=== PATIENT | male | born 1980 | race Caucasian/White ===

== ENCOUNTER 2022-08-10 02:57 | Observation (INO) | payer BC, SELFPAY ==
[2022-08-10] VITALS (17 sets, daily range): BP systolic 104–188; BP diastolic 58–106; PULSE 88–115; RESP 12–22; TEMP 36.6–37.7; O2SAT 94–100; BMI 41.1
--- NOTE | ~2022-08-10 | CT_ITS ---
CT of the Abdomen and Pelvis: Indication: Abdominal pain Technique: 2.5 mm axial scans were obtained through the abdomen and pelvis following intravenous adm inistration of 100 cc of Omnipaque 350. Dose reduction technique was used on this scan by utilizing a utomated exposure control and iterative reconstruction technique. The dose-length product (DLP) was 1 505.87 mGy-cm. Findings: Scans through the lung bases are unremarkable. Diffuse fatty infiltration of liver noted. The spleen, pancreas, gallbladder, adrenals and kidneys ar e within normal limits. No evidence of aortic aneurysm. No bowel obstruction or bowel wall thickening. Appendix is dilated to 14 mm, with appendiculis presen t and periappendiceal inflammatory change. No abscess or free air.. There is haziness in the central mesentery, multiple mildly prominent, shotty lymph nodes, consistent with mesenteric panniculitis. Images through the pelvis were performed. Urinary bladder unremarkable. Prostate gland and seminal ve sicles are unremarkable. No ascites. Impression: Acute appendicitis, as detailed above. No abscess or free air. Mesenteric panniculitis. Diffuse fatty infiltration of the liver. Reviewed, dictated and finalized at location . Impression: Acute appendicitis, as detailed above. No abscess or free air. Mesenteric panniculitis. Diffuse fatty infiltration of the liver.
[2022-08-10] MEDS: SODIUM CHLORIDE 0.9% IV 1,000 ML 999 ML IV CONT (03:44)
[2022-08-10] MEDS: ONDANSETRON INJ 4 MG/2 ML VIAL IV PUSH (03:44)
[2022-08-10] MEDS: MORPHINE SULFATE (*CRX) 4 MG/ML INJ IV PUSH ×6 (03:44→17:35)
[2022-08-10 04:06] LABS: Basophils Absolute Auto 0.1 K/mm3 (0.0-0.1); Basophils Percent Auto 0.4 % (0.2-1.2); Eosinophils Absolute Auto 0.2 K/mm3 (0-0.3); Eosinophils Percent Auto 0.9 % (0-4.4); Hematocrit 45.9 % (42.0-52.0); Hemoglobin 15.3 g/dL (14.0-18.0); Immature Granulocyte Absolute 0.13 K/mm3 (0.00-0.031); Immature Granulocyte Percent A 0.7 % (0-0.5); Lymphocytes Absolute Auto 1.93 K/mm3 (0.9-3.2); Lymphocytes Percent Auto 10.7 % (18.3-44.2); Mean Corpuscular HGB Conc 33.3 g/dl (32-36); Mean Corpuscular Hemoglobin 30.8 pg (26-34); Mean Corpuscular Volume 92.5 fl (80-100); Mean Platelet Volume 10.2 fl (7.4-10.4); Monocytes Absolute Auto 1.1 K/mm3 (0.1-0.6); Monocytes Percent Auto 6.2 % (2.6-8.5); Neutrophils Absolute Auto 14.7 K/mm3 (1.3-6.7); Neutrophils Percent Auto 81.1 % (45.5-73.1); Platelet Count Result 301 k/mm3 (150-375); Red Blood Count 4.96 M/mm3 (4.6-6.20); Red Cell Distribution Width 13.2 % (11.5-14.5); White Blood Count 18.1 K/mm3 (4.5-10.0)
[2022-08-10 04:07] LABS: Alanine Aminotransferase 233 U/L (6-50); Albumin Level 4.9 g/dL (3.5-5.1); Alkaline Phosphatase 99 U/L (38-126); Anion Gap 8 mmol/L (8-16); Aspartate Amino Transferase 94 U/L (17-59); Bilirubin,Total 0.6 mg/dL (0.2-1.3); Blood Urea Nitrogen 18 mg/dL (9-20); Calcium 9.3 mg/dL (8.4-10.2); Carbon Dioxide 28 mmol/L (22-30); Chloride 104 mmol/L (98-107); Estimated CRCL calculation 122 ml/min; Estimated Glomerular Filt Rate > 60; Glucose 129 mg/dL (65-110); Lipase 142 U/L (23-300); Potassium 4.4 mmol/L (3.4-5.0); Sodium 140 mmol/L (137-145)
--- NOTE | 2022-08-10 04:09 | ED.GENADULT ---
HPI - General Adult General Chief complaint: Abdominal Pain Stated complaint: abd pain Time Seen by Provider: 08/10/22 03:25 History of Present Illness HPI narrative: Patient 42-year-old gentleman who presents the emergency department with chief complaint of abdominal pain. The patient reports that he started having bouts of diarrhea and is having episodes where he feels as though he needs to have diarrhea but is not having stool come out the patient states that he has diffuse discomfort throughout his abdomen and reports that he had a couple episodes of nausea and vomiting. Patient denies fever reports no prior history of surgery in the abdomen. Patient states he feels as though he is overeating but reports that he does not eat more than normal and did not have an excessively rich meal Related Data Allergies Allergy/AdvReac Type Severity Reaction Status Date / Time No Known Allergies Allergy Verified 08/10/22 03:46 Review of Systems Review of Systems: A 10 system review of systems was completed on the patient and is negative except for what is stated in the HPI. Nursing and ancillary documentation was reviewed. PMFSH Comments Past medical history significant for hypertension Exam Narrative: GENERAL: Well-appearing, well-nourished, and in no acute distress. HEAD: Normocephalic, atraumatic. EYES: PERRLA and EOMI. ENT: Nares clear, no rhinorrhea or epistaxis. Mucous membranes moist. NECK: Supple. CHEST: Clear to auscultation. No respiratory distress. HEART: Regular rate and rhythm. No murmur heard. Normal peripheral pulses. ABDOMEN: Soft, diffusely tender to palpation, nondistended, normal active bowel sounds. EXTREMITIES: Normal range of motion. No edema. SKIN: Warm, dry, no rash. NEURO: No focal deficits. Alert and oriented x3. PSYCH: Normal mood and affect. Course Vital Signs Vital signs: Vital Signs Temperature 36.9 C 08/10/22 03:00 Pulse Rate 104 H 08/10/22 03:00 Respiratory Rate 18 08/10/22 03:00 Blood Pressure 188/106 H 08/10/22 03:00 Pulse Oximetry 97 08/10/22 03:00 Oxygen Delivery Room Air 08/10/22 03:00 Temperature 36.9 C 08/10/22 03:00 Pulse Rate 104 H 08/10/22 03:00 Respiratory Rate 18 08/10/22 03:00 Blood Pressure 188/106 H 08/10/22 03:00 Pulse Oximetry 97 08/10/22 03:00 Oxygen Delivery Room Air 08/10/22 03:00 Medical Decision Making MDM Narrative Medical decision making narrative: Differential diagnosis includes appendicitis, colitis, gastroenteritis, Laboratory studies were obtained which showed a white count of 18,000 patient's laboratory studies showed a slightly elevated AST and ALT urinalysis showed no evidence of UTI CT scan of the abdomen pelvis showed evidence of acute uncomplicated appendicitis with appendicolith Vital Signs Vital Signs: Vital Signs Temperature 36.9 C 08/10/22 03:00 Pulse Rate 104 H 08/10/22 03:00 Respiratory Rate 18 08/10/22 03:00 Blood Pressure 188/106 H 08/10/22 03:00 Pulse Oximetry 97 08/10/22 03:00 Oxygen Delivery Room Air 08/10/22 03:00 Temperature 36.9 C 08/10/22 03:00 Pulse Rate 104 H 08/10/22 03:00 Respiratory Rate 18 08/10/22 03:00 Blood Pressure 188/106 H 08/10/22 03:00 Pulse Oximetry 97 08/10/22 03:00 Oxygen Delivery Room Air 08/10/22 03:00 Lab Data 08/10/22 03:48 08/10/22 03:48 Labs: Lab Results 08/10/22 08/10/22 08/10/22 Range/Units 03:48 03:48 04:10 WBC 18.1 H (4.5-10.0) K/mm3 RBC 4.96 (4.6-6.20) M/mm3 Hgb 15.3 (14.0-18.0) g/dL Hct 45.9 (42.0-52.0) % MCV 92.5 (80-100) fl MCH 30.8 (26-34) pg MCHC 33.3 (32-36) g/dl RDW 13.2 (11.5-14.5) % Plt Count 301 (150-375) k/mm3 MPV 10.2 (7.4-10.4) fl Immature Gran % (Auto) 0.7 H (0-0.5) % Neut % (Auto) 81.1 H (45.5-73.1) % Lymph % (Auto) 10.7 L (18.3-44.2) % [place] % (Auto) 6.2 (2.6-8.5) % Eos % (Auto) 0.9
[2022-08-10 04:18] LABS: Appearance Urine Clear (Clear); Bilirubin Urine Negative (Negative); Blood Urine Negative (Negative); Color Urine Yellow (Yellow); Glucose Urine UA Negative (Negative); Ketones Urine Negative (Negative); Leukocyte Esterase Ur Negative LEU/UL (Negative); Nitrate Urine Negative (Negative); Protein Urine Negative (Negative); Specific Grav Ur 1.022 (1.001-1.035); Urobilinogen Urine 0.2 mg/dL (<2.0); pH Urine 5.5 (5.0-9.0)
[2022-08-10 04:36] LABS: Add Urine Microscopic? NO
[2022-08-10] MEDS: PIPERACILLN/TAZ 3.375GM/NS50ML 3.375 GM/50 ML BAG IVPB ×2 (05:51→10:45)
--- NOTE | 2022-08-10 06:18 | ADMGEN ---
This patient, Taye Freitas, was admitted to 2 Medical Room 240-01. Patient/family oriented to hospital policies and general routines including ID bracelet, bed and alarms, visiting hours, pain management, procedures, bathroom and other care routines, personal items, smoking policy, room service/diet, and visiting hours. Information on how to activate the Rapid Response Team has been discussed. Patient/Family are encouraged to report perceived risks to care and to ask questions if they do not understand what they are told or what they should do.
[2022-08-10] MEDS: SODIUM CHLORIDE 0.9% IV 1,000 ML 125 ML IV CONT (06:38)
[2022-08-10] MEDS: LACTATED RINGERS 1,000 ML 30 ML IV CONT ×2 (09:00→10:19)
--- NOTE | 2022-08-10 09:07 | WPDANESEPPF ---
Anes - Initial Pre Proc Eval Procedure: Operation Date: 08/10/22 10:00 Proposed Procedures p Laparoscopic Appendectomy, Possible Open - Althea Elder MD Date/Time: 08/10/22 09:07 Surgeon: Althea Elder MD Pre Op Diagnosis: Acute appendicitis Patient Data Age: 42 Gender: M Height: 1.7 m Weight: 119.1 kg Last Vital Signs Temp 36.9 C 08/10/22 06:15 Pulse 101 H 08/10/22 06:15 Resp 20 08/10/22 06:15 BP 148/98 H 08/10/22 06:15 Pulse Ox 99 08/10/22 06:15 O2 Del Method Room Air 08/10/22 03:00 Allergies Allergy/AdvReac Type Severity Reaction Status Date / Time No Known Allergies Allergy Verified 08/10/22 03:46 Home Medications Medication Instructions Recorded Confirmed Type escitalopram oxalate 10 mg tablet 10 mg PO DAILY 08/10/22 08/10/22 History (Lexapro) lisinopril 10 1 tablet PO DAILY 08/10/22 08/10/22 History mg-hydrochlorothiazide 12.5 mg tablet metoprolol succinate 25 mg 25 mg PO DAILY 08/10/22 08/10/22 History tablet,extended release 24 hr omeprazole 20 mg capsule,delayed 20 mg PO DAILY 08/10/22 08/10/22 History release Laboratory Tests 08/10/22 08/10/22 08/10/22 03:48 03:48 04:10 WBC 18.1 K/mm3 H K/mm3 (4.5-10.0) RBC 4.96 M/mm3 M/mm3 (4.6-6.20) Hgb 15.3 g/dL g/dL (14.0-18.0) Hct 45.9 % % (42.0-52.0) MCV 92.5 fl fl (80-100) MCH 30.8 pg pg (26-34) MCHC 33.3 g/dl g/dl (32-36) RDW 13.2 % % (11.5-14.5) Plt Count 301 k/mm3 k/mm3 (150-375) MPV 10.2 fl fl (7.4-10.4) Immature Gran % (Auto) 0.7 % H % (0-0.5) Neut % (Auto) 81.1 % H % (45.5-73.1) Lymph % (Auto) 10.7 % L % (18.3-44.2) [place] % (Auto) 6.2 % % (2.6-8.5) Eos % (Auto) 0.9 % % (0-4.4) Baso % (Auto) 0.4 % % (0.2-1.2) Lymph # (Auto) 1.93 K/mm3 K/mm3 (0.9-3.2) [place] # (Auto) 1.1 K/mm3 H K/mm3 (0.1-0.6) Eos # (Auto) 0.2 K/mm3 K/mm3 (0-0.3) Baso # (Auto) 0.1 K/mm3 K/mm3 (0.0-0.1) Abs Immat Gran (auto) 0.13 K/mm3 H K/mm3 (0.00-0.031) Absolute Neuts (auto) 14.7 K/mm3 H K/mm3 (1.3-6.7) Absolute Nucleated RBC 0.0 K/mm3 K/mm3 (0.0-0.012) Nucleated RBC % 0.0 % % (0.0-0.2) Sodium 140 mmol/L mmol/L (137-145) Potassium 4.4 mmol/L mmol/L (3.4-5.0) Chloride 104 mmol/L mmol/L (98-107) Carbon Dioxide 28 mmol/L mmol/L (22-30) Anion Gap 8 mmol/L mmol/L (8-16) BUN 18 mg/dL mg/dL (9-20) Creatinine 0.80 mg/dL mg/dL (0.7-1.3) Estim Creat Clear Calc 122 ml/min ml/min Estimated GFR > 60 (59 - ) Glucose 129 mg/dL H mg/dL (65-110) Calcium 9.3 mg/dL mg/dL (8.4-10.2) Total Bilirubin 0.6 mg/dL mg/dL (0.2-1.3) AST 94 U/L H U/L (17-59) ALT 233 U/L H U/L (6-50) Alkaline Phosphatase 99 U/L U/L (38-126) Total Protein 8.0 g/dL g/dL (6.3-8.2) Albumin 4.9 g/dL g/dL (3.5-5.1) Lipase 142 U/L U/L (23-300) Urine Color Yellow (Yellow) Urine Appearance Clear (Clear) Urine pH 5.5 (5.0-9.0) Ur Specific [place] 1.022 (1.001-1.035) Urine Protein Negative mg/dL mg/dL (Negative) Urine Glucose (UA) Negative mg/dL mg/dL (Negative) Urine Ketones Negative mg/dL mg/dL (Negative) Ur Blood (Man) Negative (Negative) Urine Nitrate Negative (Negative) Urine Bilirubin Negative (Negative) Urine Urobilinogen 0.2 mg/dL mg/dL (<2.0) Leukocyte Esterase Rfl Negative SHERINE/UL SHERINE/UL (Negative) Patient hx anesthesia problems: none Family hx anesthesia problems: none Results Review: All pre-operative results and documents
--- NOTE | 2022-08-10 09:16 | PM.IMHP ---
H&P: HPI History of Present Illness Date/Time: 08/10/22 09:16 Chief Complaint: Acute appendicitis Narrative: The patient is a 42-year-old male presenting to the emergency department complaining of a one-day history of severe abdominal pain. The patient reports the pain actually started around 11:00 p.m. last night and was diffuse in nature initially. The patient reports the pain is now more localized to the right lower quadrant and has become more constant, sharp. The patient does report diarrhea throughout the day yesterday. The patient reports he is otherwise felt normal, denies any fever or chills, reports normal appetite. The patient denies any previous surgical history. The patient denies any previous similar episodes. Review of Systems Constitutional: Constitutional: Reports as per HPI, Denies anorexia, Denies chills, Denies fatigue, Denies fever(s), Denies increased appetite, Denies lethargy, Denies poor appetite, Denies weakness, Denies weight gain and Denies weight loss Eyes: Eyes: Reports no additional eye complaints ENT: Reports system reviewed and no additional complaints, except as documented Cardiovascular: Cardiovascular: Reports no additional cardiovascular complaints Respiratory: Respiratory: Reports no additional respiratory complaints Gastrointestinal: Gastrointestinal: Reports as per HPI, Reports abdominal pain, Reports bloating, Reports change in bowel habits, Reports change in stool character, Reports GI cramping, Denies early satiety, Reports diarrhea, Reports loose stools, Denies nausea and Denies vomiting Genitourinary: Genitourinary: Reports no additional male genitourinary complaints Musculoskeletal: Musculoskeletal: Reports no additional musculoskeletal complaints Integumentary/Breasts: Skin/Breast: Reports system reviewed and no additional complaints, except as docu Neurologic: Reports system reviewed and no additional complaints, except as documented Psychiatric: Psychiatric: Reports no additional psychiatric complaints Endocrine: Endocrine: Reports no additional endocrine complaints Hematologic/Lymphatic: Hematologic/Lymphatic: Reports no additional hematologic/lymphatic complaints Allergic/Immunologic: Allergic/Immunologic: Reports no additional allergic/immunologic complaints [facility] Social History Social History Smoking packs per day: 0.5 Smoking cigarettes per day: 10.0 Smoking status: Current every day smoker Tobacco type: cigarettes Alcohol intake: current Drinks per week: 6 Substance use: never Lack of Transportation: No Lack of Food: Never True Current Housing: I Have Housing Concerned About Future Housing: No Difficulty Paying Gas/Electric Bills: No Difficulty Paying for Meds: No Currently Unemployed: No Education: Bachelor's Degree Difficulty w/ Childcare or Family Care: No Spiritual care concerns: No Comments Med history - HTN, GERD, Depression PSxH - none FH - no IBD, CRC Meds Home Medications and Allergies Home Medications Medication Instructions Recorded Confirmed Type escitalopram oxalate 10 mg tablet 10 mg PO DAILY 08/10/22 08/10/22 History (Lexapro) lisinopril 10 1 tablet PO DAILY 08/10/22 08/10/22 History mg-hydrochlorothiazide 12.5 mg tablet metoprolol succinate 25 mg 25 mg PO DAILY 08/10/22 08/10/22 History tablet,extended release 24 hr omeprazole 20 mg capsule,delayed 20 mg PO DAILY 08/10/22 08/10/22 History release Allergies Allergy/AdvReac Type Severity Reaction Status Date / Time No Known Allergies Allergy Verified 08/10/22 03:46 Vital Signs Vital Signs - 24 hr 08/10/22 03:00 08/10/22 06:15 Temperature 36.9 C 36.9 C Pulse Rate 104 H 101 H Respiratory Rate 18 20 Blood Pressure 188/106 H 148/98 H Pulse Oximetry 97 99 Oxygen Delivery Room Air Exam Const: General: cooperative, well developed and acute distress mil
[2022-08-10] MEDS: ceFAZolin 2 GM/D5W 50 ML 2 GM/50 ML BAG IVPB (09:20)
--- NOTE | 2022-08-10 09:22 | WPDHPUPDATE1 ---
History and Physical Update Update Date/Time: 08/10/22 09:22 History and Physical has been reviewed, including an updated exam of the patient. There are NO changes in the patient's condition. Risks, benefits, and alternatives have been discussed and questions answered. Patient agrees to proceed with procedure.
[2022-08-10] MEDS: BUPIVACAINE/EPINEPHRINE 0.25% 50 ML VIAL INFILTRATE (09:43)
--- NOTE | 2022-08-10 10:37 | P.OP_ITS ---
Procedure Note - Detailed Date of Procedure 08/10/22 Pre-op Diagnosis Acute appendicitis Post-op Diagnosis Same Procedure Performed laparoscopic appendectomy Surgeon Althea Elder MD Anesthesia General Indications 42 y/o M presenting to ED c acute appendicitis Findings acute appendicitis no evidence of perforation Description of Procedure The patient was taken to the operating room and placed in the supine position. After adequate induction of general anesthesia, the patient was prepped and draped in the normal sterile fashion. A time-out was then done to verify the patient's identity, as well as the procedure being performed. I began by making a 5 mm incision in the infraumbilical region, through this a Veress needle was placed in the peritoneal cavity. CO2 gas was then insufflated and after adeq uate pneumoperitoneum was achieved the Veress needle was removed. Then placed a 5 mm Optiview trocar under direct visualization into the peritoneal cavity. I then insufflated through this trocar site and the endoscope was placed into the trocar. Under direct visualization, placed 2 further 5 mm suprapubic port as well as an additional 12 mm port in the left lower abdomen. At this point identified the cecum, I retracted the cecum both medially and superiorly allowing me to expose the appendix. The appendix was noted to be very dilated and inflamed. The appendix was noted to be very adherent to the right lateral sidewall as well as the ileum. I was able to bluntly dissect the appendix from these adhesions. I then was able to locate the base of the appendix with the cecum. I created a window with the [place] dissector between the appendix itself and the mesoappendix. I then transected the mesoappendix with a white vascular staple load x 2. The Endo-VIRAL was then reloaded with a blue staple load and I transected the base of the appendix. Once the specimen was completely detached, an endo-pouch was placed into the 12 mm port site and the specimen was removed through the endo-pouch. The appendiceal specimen will be sent to pathology for further review. I then copiously irrigated the right lower quadrant. Hemostasis was noted at both staple lines no other pathology was seen in this area. I then moved the camera to the suprapubic port to check our its port of entry. No iatrogenic injury or other pathology was noted in the upper abdomen. I then closed the 12 mm port site with a Amadeo code and 0 Vicryl suture under direct visualization. At this point, the abdomen was desufflated and all ports were removed. All port sites were closed with 4 Monocryl subcuticular suture. Dermabond was placed on all wounds. The patient tolerated the procedure well and was extubated in the operating room postop. He will be sent to the recovery room in stable condition. Estimated Blood Loss 10 Drains No Packing No Pathology Yes Complications No immediate complications Condition Stable Disposition PACU [facility] Billing Surgery - Charge Forward: Surgery Billing
[2022-08-10] MEDS: HYDROmorphone HCL INJ (*CRX) 1 MG/ML SYR 0.5 MG IV PUSH ×4 (10:43→11:37)
[2022-08-10] MEDS: hydroCHLOROthiazide 12.5 MG CAPSULE PO (12:57)
[2022-08-10] MEDS: ESCITALOPRAM OXALATE 10 MG TABLET PO (12:57)
[2022-08-10] MEDS: lisinopriL 10 MG TABLET PO (12:58)
[2022-08-10] MEDS: METOPROLOL SUCCINATE EXT REL 25 MG TABCR PO (12:58)
[2022-08-10] MEDS: PANTOPRAZOLE 40 MG TABLET PO (12:59)
[2022-08-10] MEDS: HYDROcodone/acetaminophen (*CRX) 5-325 MG TABLET 1 TAB PO (20:27)
[2022-08-11] MEDS: HYDROcodone/acetaminophen (*CRX) 5-325 MG TABLET 1 TAB PO ×2 (00:38→07:51)
[2022-08-11 02:30] VITALS: BP 123/50; PULSE 81; RESP 18; TEMP 36.6; O2SAT 96
[2022-08-11 09:09] VITALS: BP 134/78; PULSE 80; RESP 16; TEMP 36.9; O2SAT 98
[2022-08-11] MEDS: ESCITALOPRAM OXALATE 10 MG TABLET PO (09:11)
[2022-08-11] MEDS: hydroCHLOROthiazide 12.5 MG CAPSULE PO (09:11)
[2022-08-11 09:12] VITALS: PULSE 81
[2022-08-11] MEDS: PANTOPRAZOLE 40 MG TABLET PO (09:12)
[2022-08-11] MEDS: lisinopriL 10 MG TABLET PO (09:12)
[2022-08-11] MEDS: METOPROLOL SUCCINATE EXT REL 25 MG TABCR PO (09:12)
--- NOTE | 2022-08-11 10:59 | PM.DS ---
DS: Admitting Diagnosis Discharge Date 08/11/2022 Admitting Diagnosis Acute appendicitis DS: Discharge Diagnosis Discharge Diagnosis (1) Acute appendicitis: Code(s): K35.80 - Unspecified acute appendicitis Status: Acute Assessment and Plan: status post laparoscopic appendectomy, continue routine postoperative care, home with p.o. analgesia and Colace, follow-up 2 weeks (2) Hypertension: Code(s): I10 - Essential (primary) hypertension Status: Acute Assessment and Plan: stable, continue home meds (3) GERD (gastroesophageal reflux disease): Code(s): K21.9 - Gastro-esophageal reflux disease without esophagitis Status: Acute Assessment and Plan: stable, continue home meds (4) Smoker: Code(s): F17.200 - Nicotine dependence, unspecified, uncomplicated Status: Acute Assessment and Plan: provider counseling DS: Summary Hospital Course Reason for hospitalization: acute appendicitis Hospital Course: The patient is a 42-year-old male presenting to the emergency department complaining of severe lower abdominal pain. Workup in the emergency department, including imaging, was significant for acute appendicitis. Given these findings, the patient was admitted to the surgical service and started on IV antibiotics. Upon evaluation, the decision was made for urgent appendectomy. The patient was taken to the operating room and laparoscopic appendectomy was done, please see full operative report for details of that procedure. Postoperatively, the patient did very well was transferred back to the surgical floor. Over the next 24 hour, the patient was able to tolerate a diet, was up and ambulating without issue, and pain was well controlled with p.o. analgesia. The patient will now be discharged home with p.o. analgesia and Colace. He will follow up with me in 2 weeks. Status at Discharge Functional status at discharge: independent ambulation Overall status at discharge: patient is progressing back to baseline Time Spent with Patient Time attestation: Total time spent providing and/or coordinating discharge services: Exam Const: General: cooperative, comfortable and no acute distress Resp: Auscultation: clear to auscultation bilaterally Cardio: Rate: regular rate Rhythm: regular rhythm GI: Inspection: normal to inspection, distended and incision GI Palp: Yes abdominal tenderness, Yes Soft to palpation, Yes Tenderness to palpation present (GI), No Guarding due to palpation present (GI) and No Rigid due to palpation DS: Data Data Completed and Pending Pending studies at discharge: Pending at discharge 08/10/22 09:47 Surgical [PTH] Routine Discharge Plan Discharge Attending physician on discharge: Althea Elder Discharging Clinician: Althea Elder Patient Disposition: Home, Self-Care Activity: other - see discharge instructions Diet: other - see discharge instructions Wound Care Instructions: incision open to air Discharge Instructions: DISCHARGE INSTRUCTION SHEET FOR HERNIA, GALLBLADDER AND APPENDIX SURGERIES DR. ELDER PATIENT TO TAKE HOME 1. May shower in 24 hours, no soaking in bath x 2weeks. 2. Call office for: Wound increasingly painful or bleeding Vomiting Fever of greater than 101 degrees 3. If no bowel movement for three days, take 1 oz. (30 ml) Milk of Magnesia or MiraLax 17g 1 to 2 times daily. 4. No heavy lifting > 10-15 pounds x 6 weeks for hernia repairs and 2 weeks for laparoscopic cholecystectomy or appendectomy. 5. No driving for 3 days or while taking narcotic pain medications. 6. Ice to surgical site for 48 hours (30 min on, then 30 min off). 7. Up walking 10-30 minutes three times per day. 8. Resume previous home medications. 9. Follow-up 10-14 days in office for wound check or as previously scheduled. [id number]) [phone]
== END 2022-08-11 11:30 | disposition home or self-care (01) ==
LOC: ANHED 05:04 → ANH2MED 06:28
PROVIDERS: Admitting Provider Surgery; Emergency Provider Emergency Medicine; PCP Nurse Practitioner; Visit Provider Surgery
PROC: 0DTJ4ZZ Resection of Appendix, Percutaneous Endoscopic Approach (ICD-10-PCS; CPT 44970; principal; 2022-08-10 10:00)
DX: K35.80 Unspecified acute appendicitis (principal); I10 Essential (primary) hypertension; K65.4 Sclerosing mesenteritis; K76.0 Fatty (change of) liver, not elsewhere classified; K21.9 Gastro-esophageal reflux disease without esophagitis; F17.210 Nicotine dependence, cigarettes, uncomplicated; F10.90 Alcohol use, unspecified, uncomplicated; Z79.899 Other long term (current) drug therapy
CPT/HCPCS: 44970; 36415; 74177; 80053; 81003; 83690; 85025; 88304; 96361; 96365; 96375; 96376; 99285; A9270; G0378; J0131; J0330; J0690; J1100; J1170; J2250; J2270; J2405; J2543; J2710; J3010; J7030; J7120; Q9967

== ENCOUNTER 2023-04-05 13:21 | Emergency (ER) | payer BC, SELFPAY ==
[2023-04-05 13:29] VITALS: BP 162/106; PULSE 110; RESP 18; TEMP 36.7; O2SAT 98
--- NOTE | 2023-04-05 13:36 | ED.SKABFB ---
HPI - Skin/Abscess/Foreign Bdy General Chief complaint: Skin/Abscess/Foreign Body Stated complaint: Allergic Reaction Time Seen by Provider: 04/05/23 13:37 Source: patient Mode of arrival: ambulatory Limitations: no limitations History of Present Illness HPI narrative: 41 yo M presents with c/o hives, itching for 1 wk. [place] 1 [place] and given prednisone. Took last dose of prednisone this AM. Itching and rash started last night. Rash worse than it was one wk ago. Only change at home is switching from tide to gain. pt reports rash to trunk , feet and groin. All systems reviewed and negative except as noted above. Related Data Home Medications Medication Instructions Recorded Confirmed escitalopram oxalate 10 mg tablet 10 mg PO DAILY 08/10/22 04/05/23 (Lexapro) lisinopril 10 1 tablet PO DAILY 08/10/22 04/05/23 mg-hydrochlorothiazide 12.5 mg tablet metoprolol succinate 25 mg 25 mg PO DAILY 08/10/22 04/05/23 tablet,extended release 24 hr omeprazole 20 mg capsule,delayed 20 mg PO DAILY 08/10/22 04/05/23 release Allergies Allergy/AdvReac Type Severity Reaction Status Date / Time No Known Allergies Allergy Verified 04/05/23 13:22 Review of Systems Review of Systems: CONSTITUTIONAL: Denies fever, chills, or sweats. EYES: Denies visual changes, redness, or discharge. ENT: Denies rhinorrhea, congestion, sore throat, or otalgia. CARDIOVASCULAR: Denies chest pain, palpitations, or edema. RESPIRATORY: Denies cough or dyspnea. GASTROINTESTINAL: Denies abdominal pain, nausea, vomiting, or diarrhea. GENITOURINARY: Denies dysuria or hematuria. SKIN: Report rash and itching. MUSCULOSKELETAL: Denies back pain, joint pain, or myalgia. NEUROLOGIC: Denies headache, numbness, or weakness. PSYCHIATRIC: Denies anxiety or depression. All other systems reviewed are negative, except as documented in HPI. [facility] Social History Social History Smoking packs per day: 0.5 Smoking cigarettes per day: 10.0 Smoking status: Current every day smoker Tobacco type: cigarettes Alcohol intake: current Drinks per week: 6 Substance use: never Lack of Transportation: No Lack of Food: Never True Current Housing: I Have Housing Concerned About Future Housing: No Difficulty Paying Gas/Electric Bills: No Difficulty Paying for Meds: No Currently Unemployed: No Education: Bachelor's Degree Difficulty w/ Childcare or Family Care: No Gender identity (if verbalized by the patient): Male Spiritual care concerns: No Comments At time of signature, agree with nursing past medical, surgical, social and family history. There is no relevant family history pertinent to the presenting complaint. Exam Narrative: GENERAL: This is a well-nourished, well-developed patient, in no apparent distress. HEAD: normocephalic, atraumatic. EYES: PERRL. Sclera clear/white. Vision is grossly intact. EARS: External ears normal NOSE: External nose normal NECK: Neck supple, non-tender without lymphadenopathy, masses or thyromegaly. CARDIOVASCULAR: Regular rate and rhythm without murmurs, gallops, or rubs. RESPIRATORY: Clear to auscultation. Breath sounds equal bilaterally. No wheezes, rales, or rhonchi. SKIN: warm, Dry, intact , good texture and turgor. erythematous hives to left side of abdomen, bilateral feet. NEURO: awake, alert, and oriented to person, place and time. There were no obvious focal neurologic abnormalities. EXTREMITIES: No joint tenderness, effusion, or edema noted. Course Course Level of Care: Express Care Visit Vital Signs Vital signs: Vital Signs Temperature 36.7 C 04/05/23 13:29 Pulse Rate 110 H 04/05/23 13:29 Respiratory Rate 18 04/05/23 13:29 Blood Pressure 162/106 H 04/05/23 13:29 Pulse Oximetry 98 04/05/23 13:29 Oxygen Delivery Room Air 04/05/23 13:29 Temperature 36.7 C 03/20
== END 2023-04-05 13:54 | disposition home or self-care (01) ==
PROVIDERS: Emergency Provider Nurse Practitioner Family; PCP Nurse Practitioner
DX: T78.40XA Allergy, unspecified, initial encounter (principal); L50.9 Urticaria, unspecified; F17.210 Nicotine dependence, cigarettes, uncomplicated; K21.9 Gastro-esophageal reflux disease without esophagitis; F41.9 Anxiety disorder, unspecified; F32.A Depression, unspecified
CPT/HCPCS: 99213; G0463

== ENCOUNTER 2023-06-18 00:25 | Emergency (ER) | payer BC, SELFPAY ==
--- NOTE | ~2023-06-18 | XR_ITS ---
Portable chest x-ray Comparison: None Clinical History: Fever Findings: Lungs are clear, without focal consolidation or pleural effusion. Cardiomediastinal silho uette is unremarkable. Bones and soft tissues are unremarkable. Impression: Normal chest. Reviewed, dictated and finalized at location . S A [employer] Impression: Normal chest.
[2023-06-18 00:26] VITALS: BP 148/89; PULSE 133; RESP 18; TEMP 39.6; O2SAT 96
[2023-06-18 00:46] VITALS: BP 155/81; PULSE 124; RESP 17; O2SAT 97
--- NOTE | 2023-06-18 00:59 | ECG_ITS ---
Measurements Intervals [place] Rate: 113 P: 46 NC: 171 QRS: -30 QRSD: 102 T: 7 QT: 322 QTc: 443 Interpretive Statements SINUS TACHYCARDIA DELAYED PRECORDIAL R/S TRANSITION BORDERLINE T WAVE ABNORMALITY- INFERIOR LEADS ABNORMAL ECG NO PREVIOUS ECG AVAILABLE FOR COMPARISON Electronically Signed On 06-18-2023 6:28:37 [employer] by Hang Arroyo D.O.
[2023-06-18] MEDS: ACETAMINOPHEN 500 MG TABLET 1000 MG PO (01:53)
[2023-06-18] MEDS: diphenhydrAMINE HCl INJ 50 MG/ML VIAL IV PUSH (01:54)
[2023-06-18] MEDS: FAMOTIDINE 20 MG/2 ML VIAL 40 MG IV PUSH (01:55)
[2023-06-18] MEDS: SODIUM CHLORIDE 0.9% IV 2,000 ML 999 ML IV CONT (01:59)
[2023-06-18 02:19] LABS: Basophils Percent Auto 0.2 % (0.2-1.2); Hematocrit 41.8 % (42.0-52.0); Hemoglobin 13.9 g/dL (14.0-18.0); Immature Granulocyte Absolute 0.08 K/mm3 (0.00-0.031); Immature Granulocyte Percent A 0.8 % (0-0.5); Lymphocytes Absolute Auto 0.56 K/mm3 (0.9-3.2); Lymphocytes Percent Auto 5.5 % (18.3-44.2); Mean Corpuscular HGB Conc 33.3 g/dl (32-36); Mean Corpuscular Hemoglobin 30.1 pg (26-34); Mean Corpuscular Volume 90.5 fl (80-100); Mean Platelet Volume 10.9 fl (7.4-10.4); Monocytes Absolute Auto 0.4 K/mm3 (0.1-0.6); Monocytes Percent Auto 3.6 % (2.6-8.5); Neutrophils Absolute Auto 9.2 K/mm3 (1.3-6.7); Neutrophils Percent Auto 89.9 % (45.5-73.1); Platelet Count Result 220 k/mm3 (150-375); Red Blood Count 4.62 M/mm3 (4.6-6.20); Red Cell Distribution Width 13.1 % (11.5-14.5); White Blood Count 10.2 K/mm3 (4.5-10.0)
[2023-06-18 02:27] LABS: Appearance Urine Clear (Clear); Bacteria Urine None Seen /hpf; Bilirubin Urine Negative (Negative); Blood Urine Negative (Negative); Color Urine Yellow (Yellow); Glucose Urine UA Negative (Negative); Ketones Urine Trace mg/dL (Negative); Leukocyte Esterase Ur Negative LEU/UL (Negative); Nitrate Urine Negative (Negative); Non Pathogenic Casts 0-2; Protein Urine 1+ mg/dL (Negative); RBC Urine 0-2 /hpf (0-2); Specific Grav Ur 1.024 (1.001-1.035); Squamous Epithelial Cell Urine None seen /hpf (Few); WBC Urine 0-5 /hpf; pH Urine 6.5 (5.0-9.0)
[2023-06-18 02:28] LABS: Lactic Acid Reflex 0.9 mmol/L (0.7-2.0)
[2023-06-18 02:29] LABS: Alanine Aminotransferase 102 U/L (6-50); Albumin Level 4.4 g/dL (3.5-5.1); Alkaline Phosphatase 78 U/L (38-126); Anion Gap 11 mmol/L (8-16); Aspartate Amino Transferase 94 U/L (17-59); Bilirubin,Total 0.5 mg/dL (0.2-1.3); Blood Urea Nitrogen 15 mg/dL (9-20); Calcium 9.1 mg/dL (8.4-10.2); Carbon Dioxide 21 mmol/L (22-30); Chloride 102 mmol/L (98-107); Estimated CRCL calculation 109 ml/min; Estimated Glomerular Filt Rate > 60; Glucose 132 mg/dL (65-110); Lipase 123 U/L (23-300); Magnesium 1.7 mg/dL (1.6-2.3); Potassium 3.8 mmol/L (3.4-5.0); Sodium 134 mmol/L (137-145)
[2023-06-18 02:32] LABS: Add Urine Microscopic? YES
[2023-06-18 02:57] LABS: Influenza A QL RT-PCR Positive (Negative); Influenza B QL RT-PCR Negative (Negative); RSV RNA, RT-PCR Negative (Negative); SARS-CoV-2 RNA PCR Negative (Negative)
--- NOTE | 2023-06-18 03:29 | ED.GENADULT ---
HPI - General Adult General Chief complaint: Allergic Reaction Stated complaint: generalized swelling, fever Time Seen by Provider: 06/18/23 00:39 History of Present Illness HPI narrative: This is a 42-year-old male presenting with fever and rash. Patient says that he has been having bowl target lesions on his arms and legs for the last several months. However over last 2 days he developed a fever and cough. he had been taking cold medication including DayQuil and Motrin and then developed redness and swelling of his face and ears. His targetoid lesions also became more pronounced. Patient has not had any blistering, he has no involvement of his mucous membranes. Patient has follow-up with dermatology later this afternoon. Related Data Home Medications Medication Instructions Recorded Confirmed escitalopram oxalate 10 mg tablet 10 mg PO DAILY 08/10/22 04/05/23 (Lexapro) lisinopril 10 1 tablet PO DAILY 08/10/22 04/05/23 mg-hydrochlorothiazide 12.5 mg tablet metoprolol succinate 25 mg 25 mg PO DAILY 08/10/22 04/05/23 tablet,extended release 24 hr omeprazole 20 mg capsule,delayed 20 mg PO DAILY 08/10/22 04/05/23 release Allergies Allergy/AdvReac Type Severity Reaction Status Date / Time No Known Allergies Allergy Verified 06/18/23 00:50 [facility] Social History Social History Smoking packs per day: 0.5 Smoking cigarettes per day: 10.0 Smoking status: Current every day smoker Tobacco type: cigarettes Alcohol intake: current Drinks per week: 6 Substance use: never Lack of Transportation: No Lack of Food: Never True Current Housing: I Have Housing Concerned About Future Housing: No Difficulty Paying Gas/Electric Bills: No Difficulty Paying for Meds: No Currently Unemployed: No Education: Bachelor's Degree Difficulty w/ Childcare or Family Care: No Gender identity (if verbalized by the patient): Male Spiritual care concerns: No Exam Narrative: APPEARANCE: No apparent distress. Head: patient's face is flushed with swelling of his right eyelid and lip. No voice changes. No difficulty speaking or swallowing. EYES: No injection or irritation NOSE: Atraumatic NECK: Trachea midline RESPIRATORY: No increased rate of breathing, CTAB CARDIOVASCULAR: tachycardic, no peripheral edema ABDOMINAL: Non-distended MUSCULOSKELETAl: No obvious deformities NEURO: Alert. Moving 4/4 extremities SKIN:: flushing of the face as described above. Targetoid with lesions patient's lower legs forearms and polyps. PSYCHIATRIC: Normal affect Course Vital Signs Vital signs: Vital Signs Temperature 103.2 F H 06/18/23 00:26 Pulse Rate 133 H 06/18/23 00:26 Respiratory Rate 18 06/18/23 00:26 Blood Pressure 148/89 H 06/18/23 00:26 Pulse Oximetry 96 06/18/23 00:26 Oxygen Delivery Room Air 06/18/23 00:26 Temperature 103.2 F H 06/18/23 00:26 Pulse Rate 124 H 06/18/23 00:46 Respiratory Rate 17 06/18/23 00:46 Blood Pressure 155/81 H 06/18/23 00:46 Pulse Oximetry 97 06/18/23 00:46 Oxygen Delivery Room Air 06/18/23 00:26 Medical Decision Making [facility] Narrative Medical decision making narrative: -Course: 42-year-old male presenting fever and a targetoid like lesions. Infectious workup was positive for flu A. Rash is consistent with erythema multiform. Patient was given steroids. He is also given Benadryl and Pepcid to cover for allergic reaction. on re-evaluation he is no longer flushed in the swelling has improved. The erythema multiforme lesions have disappeared. Vital signs and fever improved with fluid resuscitation and Tylenol although he is still slightly tachycardic. The patient is feeling much better and is well appearing. 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 -DDX includes but is not limited to: COVID, flu, RSV, erythema multiform, SJS, TEN, al
== END 2023-06-18 04:00 | disposition home or self-care (01) ==
PROVIDERS: Emergency Provider Emergency Medicine; PCP Nurse Practitioner
DX: J10.1 Influenza due to other identified influenza virus with other respiratory manifestations (principal); L51.9 Erythema multiforme, unspecified; Z20.822 Contact with and (suspected) exposure to COVID-19; F17.210 Nicotine dependence, cigarettes, uncomplicated
CPT/HCPCS: 36415; 71045; 80053; 81001; 83605; 83690; 83735; 85025; 86850; 86900; 86901; 87040; 87637; 93005; 96361; 96372; 96374; 96375; 99291; A9270; J1100; J1200; J7030